=== PATIENT | male | born 1995 | race Caucasian/White ===

== ENCOUNTER 2018-12-06 05:50 | Emergency (ER) | payer OTHER ==
--- NOTE | 2018-12-06 06:08 | PDOC ---
Medical Decision Making - Medical Decision Making 12/06/18 06:07 Patient seen by the advanced practice provider under my direct supervision. Ancillary testing reviewed as necessary. I agree with plan as outlined by the advanced practice provider. *DC/Admit/Observation/Transfer Diagnosis at time of Disposition: Tonsillitis with exudate - Discharge Dispostion Disposition: HOME Condition at time of disposition: Stable - Prescriptions Prescriptions: Doxycycline Monohydrate [Mondoxyne Nl] 100 mg PO BID #14 capsule - Referrals Referrals: Alverto Pelayo MD [Staff Physician] - - Patient Instructions Printed Discharge Instructions: DI for Pharyngitis/Tonsillopharyngitis -- Adult Additional Instructions: gargle with warm salty water take doxycycline as prescribed. follow up with an ENT doctor as soon as possible. Additional Instructions: * Please call your personal physician to report your Emergency Department visit and to report your progress, if any. * If there is no improvement in symptoms in 2 days call your physician. * Return to the Emergency Department for any worsening symptoms. - Post Discharge Activity
[2018-12-06] MEDS ORDERED: ACETAMINOPHEN 325 MG TABLET (FP) PO ONE (06:12)
[2018-12-06 06:14] VITALS: BP 136/82; PULSE 78; TEMP 98; BMI 21.7
[2018-12-06] MEDS ORDERED: DEXAMETHASONE 4 MG TABLET (FP) PO ONE (06:15)
[2018-12-06] MEDS ORDERED: ACETAMINOPHEN 325 MG TABLET (FP) ONE (06:16)
[2018-12-06] MEDS ORDERED: DEXAMETHASONE SOD PHOSPHATE 10 MG/1 ML VIAL ONE (06:17)
--- NOTE | 2018-12-06 06:18 | PDOC ---
History of Present Illness - General Chief Complaint: Sore Throat Stated Complaint: SORE THROAT Time Seen by Provider: 12/06/18 06:00 - History of Present Illness Initial Comments: 12/06/18 06:14 23 year old male c/o throat pain worsening over the last two days. reports no improvement in symptoms with gargling with warm salty water, denies fever/ chills, NV, abdominal pain 12/06/18 06:16 Past History - Past Medical History Allergies/Adverse Reactions: Allergies Allergy/AdvReac Type Severity Reaction Status Date / Time No Known Allergies Allergy Verified 10/26/16 10:49 Home Medications: Ambulatory Orders Doxycycline Monohydrate [Mondoxyne Nl] 100 mg PO BID #14 capsule 12/06/18 Asthma: Yes - Suicide/Smoking/Psychosocial Hx Smoking History: Never smoked Review of Systems - Review of Systems Able to Perform ROS?: Yes Is the patient limited Kyrgyz proficient: No Constitutional: No: Symptoms Reported, See HPI, Chills, Diaphoresis, Fever, Loss of Appetite, Malaise, Night Sweats, Weakness, Weight Stable, Unintentional Wgt. Loss, Unexplained wgt Loss, Other HEENTM: Yes: Throat Pain, Throat Swelling. No: Symptoms Reported, See HPI, Eye Pain, Blurred Vision, Tearing, Recent change in vision, Double Vision, Cataracts , Ear Pain, Ocular Prothesis, Ear Discharge, Nose Pain, Nose Congestion, Tinnitus, Nose Bleeding, Hearing Loss, Mouth Pain, Dental Problems, Difficulty Swallowing, Mouth Swelling, Other *Physical Exam - Vital Signs 12/06/18 06:16 Last Vital Signs Temp Pulse Resp BP Pulse Ox 98.0 F 78 18 136/82 98 12/06/18 06:05 12/06/18 06:05 12/06/18 06:05 12/06/18 06:05 12/06/18 06:05 - Physical Exam General Appearance: Yes: Appropriately Dressed. No: Apparent Distress HEENT: positive: Other (almost kissing tonsils with exudate) Neck: positive: Supple, Lymphadenopathy (R), Lymphadenopathy (L) Respiratory/Chest: positive: Lungs Clear, Normal Breath Sounds Cardiovascular: positive: Regular Rhythm, Regular Rate Gastrointestinal/Abdominal: positive: Normal Bowel Sounds, Soft. negative: Tender Medical Decision Making - Medical Decision Making 12/06/18 06:17 A: tonsillitis P: rapid strep decadron pain control will cover STI/ pharyngitis with Doxycycline *DC/Admit/Observation/Transfer Diagnosis at time of Disposition: Tonsillitis with exudate - Prescriptions Prescriptions: Doxycycline Monohydrate [Mondoxyne Nl] 100 mg PO BID #14 capsule - Referrals Referrals: Alverto Pelayo MD [Staff Physician] - - Patient Instructions Printed Discharge Instructions: DI for Pharyngitis/Tonsillopharyngitis -- Adult Additional Instructions: gargle with warm salty water take doxycycline as prescribed. follow up with an ENT doctor as soon as possible. Additional Instructions: * Please call your personal physician to report your Emergency Department visit and to report your progress, if any. * If there is no improvement in symptoms in 2 days call your physician. * Return to the Emergency Department for any worsening symptoms. - Post Discharge Activity
== END 2018-12-06 06:41 | disposition home or self-care (01) ==
LOC: JER 05:50
DX: J03.90 Acute tonsillitis, unspecified (principal)
CPT/HCPCS: 87070; 87880; 99282-25

== ENCOUNTER 2019-05-04 12:53 | Emergency (ER) | payer OTHER ==
[2019-05-04] MEDS ORDERED: ONDANSETRON *ODT* 4 MG TABLET SL ONE (12:59)
[2019-05-04 13:00] VITALS: BP 123/66; PULSE 100; TEMP 97.8; BMI 25.4
--- NOTE | 2019-05-04 13:02 | PDOC ---
Rapid Medical Evaluation Chief Complaint: Nausea/Vomiting Time Seen by Provider: 05/04/19 12:55 Medical Evaluation: Allergies Allergy/AdvReac Type Severity Reaction Status Date / Time No Known Allergies Allergy Verified 12/06/18 06:22 05/04/19 12:56 I have performed a brief in-person evaluation of this patient. The patient presents with a chief complaint of: N/V/D started this AM- works with client ill with same, no Dysuria Pertinent physical exam findings: pale, mild abd tenderness I have ordered the following: Urine, Zofran ODT The patient will proceed to the ED for further evaluation. 05/04/19 12:58
--- NOTE | 2019-05-04 15:07 | PDOC ---
History of Present Illness - General Chief Complaint: Diarrhea Stated Complaint: VOMITING/DIARRHEA Time Seen by Provider: 05/04/19 12:55 History Source: Patient Exam Limitations: No Limitations Past History - Past Medical History Allergies/Adverse Reactions: Allergies Allergy/AdvReac Type Severity Reaction Status Date / Time No Known Allergies Allergy Verified 05/04/19 12:57 Home Medications: Ambulatory Orders Doxycycline Monohydrate [Mondoxyne Nl] 100 mg PO BID #14 capsule 12/06/18 Asthma: Yes COPD: No - Immunization History Immunization Up to Date: No - Suicide/Smoking/Psychosocial Hx Smoking History: Never smoked Have you smoked in the past 12 months: No Hx Alcohol Use: Yes (socially) Drug/Substance Use Hx: No *Physical Exam - Vital Signs Last Vital Signs Temp Pulse Resp BP Pulse Ox 97.8 F 100 H 18 123/66 100 05/04/19 12:57 05/04/19 12:57 05/04/19 12:57 05/04/19 12:57 05/04/19 12:57 - Physical Exam General Appearance: No: Apparent Distress Respiratory/Chest: positive: Lungs Clear, Normal Breath Sounds. negative: Respiratory Distress Cardiovascular: positive: Regular Rhythm, Regular Rate, S1, S2. negative: Murmur Gastrointestinal/Abdominal: positive: Normal Bowel Sounds, Soft. negative: Tender, Distended, Guarding, Rebound Integumentary: positive: Normal Color Neurologic: positive: Alert, Normal Mood/Affect ED Treatment Course - Medications Given in the ED: ED Medications Discontinued Medications Generic Name Dose Route Start Last Admin Trade Name Freq PRN Reason Stop Dose Admin Ondansetron HCl 4 mg 05/04/19 12:59 05/04/19 13:31 Zofran Odt - SL 05/04/19 13:00 4 mg ONCE ONE Administration Medical Decision Making - Medical Decision Making 24 y/o M with no sig pmh presents with NBNB emesis x4 and watery diarrhea since 7 AM today. 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 Denies fever, sob, cp, abd pain , urinary complaints, recent travel/camping/hiking. Patient was given SL Zofran from triage Has been drinking Gingerale and received crackers; tolerating PO well Likely viral gastroenteritis Stable for dc 05/04/19 15:06 *DC/Admit/Observation/Transfer Diagnosis at time of Disposition: Gastroenteritis - Discharge Dispostion Disposition: HOME Condition at time of disposition: Stable Decision to Admit order: No - Referrals - Patient Instructions Printed Discharge Instructions: DI for Viral Gastroenteritis -- Adult Additional Instructions: Thank you for choosing [facility]. It was a pleasure taking care of you. Drink plenty of water to stay hydrated - at least 2L of water daily Eat light food such as bananas, rice, applesauce, toast, plain yogurt until feeling water Follow-up with your doctor in 2 days Return to the Emergency Department if your symptoms worsen or persist, you have fever, unable to tolerate liquids, severe abdominal pain, blood in stools or other concerning symptoms. - Post Discharge Activity
== END 2019-05-04 15:34 | disposition home or self-care (01) ==
LOC: JER 12:53
DX: A08.4 Viral intestinal infection, unspecified (principal); B97.89 Other viral agents as the cause of diseases classified elsewhere
CPT/HCPCS: 99281-25; Q0162

== ENCOUNTER 2022-11-03 17:40 | Emergency (ER) | payer OTHER ==
[2022-11-03 17:45] VITALS: BP 100/66; PULSE 90; RESP 18; TEMP 97.8; BMI 24.7
[2022-11-03] MEDS ORDERED: IBUPROFEN 600 MG TABLET (FP) PO ONE ×2 (19:42→20:41)
[2022-11-03] MEDS ORDERED: ACETAMINOPHEN 500 MG TABLET (FP) PO ONE (19:42)
[2022-11-03] MEDS ORDERED: CYCLOBENZAPRINE HCL 10 MG TABLET (FP) PO ONE (19:42)
[2022-11-03] MEDS ORDERED: CYCLOBENZAPRINE HCL 10 MG TABLET (FP) ONE (20:41)
[2022-11-03] MEDS ORDERED: ACETAMINOPHEN 500 MG TABLET (FP) ONE (20:43)
[2022-11-03 21:12] LABS: BASO % 0.4 % (0-2.0); EOS % 0.3 % (0-4.5); HEMATOCRIT 43.8 % (35.4-49); HEMOGLOBIN 14.7 GM/dL (11.7-16.9); LYMPH % 7.2 % (8-40); MCHC 33.6 g/dl (32.0-35.9); MEAN CELL VOLUME 83.2 fl (80-96); MONO % 16.8 % (3.8-10.2); NEUT % 75.3 % (42.8-82.8); PLATELET COUNT 169 10^3/uL (134-434); RBC 5.26 M/mm3 (4.00-5.60); RDW 13.1 % (11.9-15.9); WHITE BLOOD COUNT 6.6 K/mm3 (4.0-10.0)
[2022-11-03 21:33] LABS: ALBUMIN 4.3 g/dl (3.4-5.0); BLOOD UREA NITROGEN 11.4 mg/dL (7-18); MAGNESIUM 2.4 mg/dL (1.8-2.4)
[2022-11-03 21:36] LABS: CREATININE 1.1 mg/dL (0.55-1.3)
[2022-11-03 21:38] LABS: BILIRUBIN,TOTAL 0.4 mg/dL (0.2-1); TOT PROT 7.8 g/dl (6.4-8.2)
== END 2022-11-03 22:07 | disposition home or self-care (01) ==
LOC: JER 17:40
DX: R07.9 Chest pain, unspecified (principal)
CPT/HCPCS: 36415; 71046-TC-FY; 80053; 83735; 84443; 84484; 85025; 93005; 93010; 99285-25